=== PATIENT | female | born 1980 | race African-American/Black ===

== ENCOUNTER 2025-04-27 10:20 | Emergency (ER) | payer OTHER ==
[2025-04-27 10:37] VITALS: BP 134/79; PULSE 89; RESP 18; TEMP 98.1; BMI 28.7
[2025-04-27] MEDS ORDERED: ONDANSETRON 4 MG/2 ML VIAL ONE (10:40)
[2025-04-27] MEDS: SODIUM CHLORIDE 0.9% 500 ML INFUS.BAG IV ONE (10:52)
[2025-04-27] MEDS: ONDANSETRON 4 MG/2 ML VIAL IVPUSH ONE (10:52)
[2025-04-27 11:17] LABS: GLUCOSE,RANDOM 84.0 mg/dL (74-106); TOT PROT 8.2 g/dl (6.4-8.2)
[2025-04-27 11:18] LABS: CO2 24.0 mmol/L (21-32)
[2025-04-27 11:20] LABS: ALK PHOS 61.0 U/L (40-150)
[2025-04-27 11:23] LABS: CREATININE 0.6 mg/dL (0.55-1.3); SGOT/AST 16.0 U/L (5-34); SGPT/ALT 9.0 U/L (0-55)
[2025-04-27 11:34] LABS: ABSOLUTE IMMATURE GRANULOCYTES 0.02 x10^3/uL (0.0-0.031); BASOPHILS # 0.01 x10^3/uL (0.01-0.08); EOSINOPHIL % 0.1 % (0.7-5.8); EOSINOPHILS # 0.01 x10^3/uL (0.04-0.36); MCHC 33.7 g/dl (32.2-35.5); MEAN CELL VOLUME 83.7 fl (79.4-94.8); MEAN PLT VOLUME 11.9 fl (9.4-12.3); MONOCYTE # 0.55 x10^3/uL (0.24-0.86); MONOCYTE % 6.4 % (4.7-12.5); RDW 14.3 % (12.2-17.1)
[2025-04-27 11:43] LABS: HCV DIAGNOSTIC IN-HOUSE W/RFLX NON-REACTIVE (NONREACTIVE)
[2025-04-27] MEDS ORDERED: POTASSIUM CHLORIDE ORAL LIQUID 20 MEQ/15 ML ONE (11:52)
[2025-04-27 11:57] LABS: EPI CELLS 21 /uL (0-25.1); HYALINE CASTS 1 /uL (0-3.1); URINE APPEARANCE CLEAR; URINE BACTERIA 241 /uL (0-1359); URINE BILIRUBIN NEGATIVE (NEGATIVE); URINE COLOR YELLOW; URINE GLUCOSE (UA) NEGATIVE (NEGATIVE); URINE KETONE 4+ (NEGATIVE); URINE LEUK ESTERASE NEGATIVE (NEGATIVE); URINE NITRITE NEGATIVE (NEGATIVE); URINE PROTEIN 1+ (NEGATIVE); URINE RBC 565 /uL (0-23.9); URINE UROBILINOGEN 1.0 mg/dL (0.2-1.0); URINE WBC 12 /uL (0-25.8)
[2025-04-27] MEDS: POTASSIUM CHLORIDE ORAL LIQUID 20 MEQ/15 ML PO ONE (11:57)
[2025-04-27 12:02] LABS: HIV INTERPRETATION NEGATIVE (NEGATIVE)
== END 2025-04-27 12:27 | disposition home or self-care (01) ==
LOC: JER 10:20
PROC: 3E033GC Introduction of Other Therapeutic Substance into Peripheral Vein, Percutaneous Approach (ICD-10-PCS; principal; 2025-04-27)
DX: R11.2 Nausea with vomiting, unspecified (principal); E87.1 Hypo-osmolality and hyponatremia; E87.6 Hypokalemia
CPT/HCPCS: 36415; 80053; 81003; 83690; 83735; 84703; 85025; 86803; 87077; 87086; 87389; 87637-QW; 99284-25